=== PATIENT | male | born 1980 | race Caucasian/White ===

== ENCOUNTER 2020-07-05 13:14 | Emergency (ER) | payer MEDICAID ==
[~2020-07-05] VITALS: Ht 177.8 cm; Wt 79.4 kg
[~2020-07-05 13:14] MED LIST: CARB200T PO; ILOP8TAB PO; OLAN10TA3 GT
--- NOTE | 2020-07-05 13:37 | NUR ---
CALLED PTS POA LISTED ON DEMOGRAPHICS AND INFORMED OF PTS CURRENT STATUS.
[2020-07-05 13:46] LABS: HEMOGLOBIN 13.9 g/dL (13.3-17.7); MEAN PLATELET VOLUME 9.4 fL (9.0-12.2); WHITE BLOOD COUNT 7.3 10^3/uL (4.3-11.0)
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
--- NOTE | 2020-07-05 14:54 | Diagnostic Imaging Report ---
INDICATION: Pain. 4 views of left tibia and fibula were obtained. FINDINGS: There is a fracture through the mid patella. Left tibia and fibula are intact. There is no other fracture or dislocation. IMPRESSION: Midpatellar fracture which is slightly distracted as described. Dictated by: Dictated on workstation # [id number]
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
[2020-07-05 15:30] LABS: ALBUMIN 4.1 GM/DL (3.2-4.5); CHLORIDE 102 MMOL/L (98-107); POTASSIUM 4.3 MMOL/L (3.6-5.0); SODIUM 135 MMOL/L (135-145)
[2020-07-05 15:31] LABS: CALCIUM 8.2 MG/DL (8.5-10.1)
[2020-07-05 15:32] LABS: GLUCOSE 104 MG/DL (70-105); TOTAL PROTEIN 7.1 GM/DL (6.4-8.2)
[2020-07-05 15:34] LABS: BILIRUBIN,TOTAL 0.6 MG/DL (0.1-1.0); CARBON DIOXIDE 21 MMOL/L (21-32)
[2020-07-05 15:36] LABS: ALKALINE PHOSPHATASE 67 U/L (40-136); CREATININE SERUM 0.93 MG/DL (0.60-1.30); GFR ESTIMATED > 60
[2020-07-05 15:37] LABS: BUN/CREATININE RATIO 10
[2020-07-05 15:39] LABS: ALANINE AMINOTRANSFERASE 18 U/L (0-55)
[2020-07-05 15:45] LABS: CLARITY,URINE SL CLOUDY; COLOR,URINE YELLOW; GLUCOSE, URINE (UA) TRACE (NEGATIVE); KETONES,URINE 2+ (NEGATIVE); LEUKOCYTE ESTERASE ,URINE NEGATIVE (NEGATIVE); NITRITE,URINE NEGATIVE (NEGATIVE); PH,URINE 6.5 (5-9); PROTEIN,URINE TRACE (NEGATIVE)
[2020-07-05 16:02] LABS: BILIRUBIN,URINE NEGATIVE (NEGATIVE)
[2020-07-05 16:03] LABS: BACTERIA,URINE FEW /HPF; WBC,URINE 0-2 /HPF
[2020-07-05 17:28] VITALS: BP 120/81
== END 2020-07-05 17:28 | disposition short-term general hospital (02) ==
LOC: EDUNIT# 13:14 → ER 13:15
DX: M25.552 Pain in left hip (principal); M79.605 Pain in left leg
CPT/HCPCS: 36415; 51702; 70450; 71045; 72125; 73521; 73590; 80053; 80320; 81000; 85027; 87088; 93005; 93041